=== PATIENT | male | born 2000 | race Caucasian/White ===

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

== ENCOUNTER 2024-10-25 17:47 | Emergency (ER) | payer SELFPAY ==
[2024-10-25] MEDS: IBUPROFEN 400MG TABLET PO ONE (20:49)
[2024-10-25] MEDS ORDERED: LIDOCAINE HCL 1% 20ML VIAL INL ONE (21:30)
[2024-10-25] MEDS ORDERED: CLIN-194 MT (23:15)
[2024-10-25] MEDS ORDERED: IBUP-2437 MT (23:15)
[2024-10-25] MEDS ORDERED: SULF1TAB48 MT (23:15)
[2024-10-25 23:30] VITALS: BP 140/74; PULSE 98; RESP 14; O2SAT 99
== END 2024-10-25 23:32 | disposition home or self-care (01) ==
LOC: ER 17:47
DX: L05.91 Pilonidal cyst without abscess (principal); J45.909 Unspecified asthma, uncomplicated; L03.317 Cellulitis of buttock; Z88.0 Allergy status to penicillin
CPT/HCPCS: 10080; 99283; J2003; Z7610 ×2